=== PATIENT | female | born 1935 | race African-American/Black ===

== ENCOUNTER 2020-11-27 19:45 | Inpatient (IN) | payer OTHER ==
[~2020-11-27] VITALS: Ht 154.9 cm; Wt 72.8 kg
[~2020-11-27 19:45] MED LIST: AMLODIPINE BESY10 MG PO; ASPIRIN325; CARVEDILOL3.125 MG PO; HYDROCHLOROTHIA25 M1 PO; IRON325 PO; LISINOPRIL40 MG PO; VITAMINC500 PO; VITD2 PO
[2020-11-27 19:46] VITALS: BP 198/93
[2020-11-27 21:01] LABS: ABSOLUTE NEUTROPHILS 4.3 thou/uL (1.4-8.2); BASOPHILS 0.4 % (0.0-2.0); EOSINOPHILS 0.6 % (0.0-3.0); LYMPHOCYTES 12.2 % (24.0-44.0); MCH 28.7 pg (26.0-34.0); MCHC 31.3 g/dL (28.0-37.0); MCV 91.8 fL (80.0-100.0); MONOCYTES 8.4 % (1.0-8.0); PLATELET COUNT 169 thou/uL (150-400); POLYS 78.4 % (36.0-66.0); RBC 2.08 mil/uL (4.20-5.00); RDW 18.2 % (10.5-14.5); WBC 5.5 thou/uL (4.0-11.0)
[2020-11-27 21:05] LABS: HEMATOCRIT 19.1 % (37.0-47.0)
[2020-11-27 21:18] LABS: CALCIUM 7.8 mg/dL (8.5-10.1); CREATININE 8.4 mg/dL (0.6-1.0); POTASSIUM 5.2 mmol/L (3.5-5.1)
[2020-11-27 21:25] LABS: ALBUMIN 3.1 g/dL (3.4-5.0); TOTAL BILIRUBIN 0.5 mg/dL (0.2-1.0); TOTAL PROTEIN 6.9 g/dL (6.4-8.2)
[2020-11-27 21:32] LABS: INR 1.2; PROTIME 13.3 Seconds (9.3-11.4)
[2020-11-27 21:47] LABS: HEMOGLOBIN 5.9 gm/dL (12.0-15.0)
[2020-11-27 23:27] VITALS: BP 181/78
[2020-11-27 23:39] VITALS: BP 174/84
[2020-11-28] VITALS (7 sets, daily range): BP systolic 142–194; BP diastolic 66–108
--- NOTE | 2020-11-28 00:56 | NUR ---
0035 PT TRANSPORT TO ROOM 364 WITH BLOOD TRANSFUSION INFUSING. REPORT UPDATE GIVEN TO LEONA ASIF.
[2020-11-28] MEDS ORDERED: VITAMIN D310 MC1 PO (02:03)
[2020-11-28 05:39] LABS: HEMATOCRIT 22.3 % (37.0-47.0); HEMOGLOBIN 7.2 gm/dL (12.0-15.0); MCH 28.9 pg (26.0-34.0); MCHC 32.3 g/dL (28.0-37.0); MCV 89.5 fL (80.0-100.0); RBC 2.49 mil/uL (4.20-5.00); RDW 16.3 % (10.5-14.5); WBC 4.6 thou/uL (4.0-11.0)
[2020-11-28 05:45] LABS: % SATURATION 42 % (20-39); IRON 54 ug/dL (50-170); TIBC 130 ug/dL (250-450)
[2020-11-28 06:22] LABS: ANION GAP 18 mmol/L (7-16); BUN 63 mg/dL (7-18); CALCIUM 7.3 mg/dL (8.5-10.1); CHLORIDE 119 mmol/L (98-107); CHOLESTEROL 122 mg/dL (<200); CO2 13 mmol/L (21-32); GLUCOSE 81 mg/dL (74-106); HDL CHOLESTEROL 65 mg/dL (>40); LDL CHOLESTEROL 45 mg/dL (<100); POTASSIUM 4.9 mmol/L (3.5-5.1); SODIUM 150 mmol/L (136-145); TC:HDL 1.9 Ratio (Not establshd); TRIGLYCERIDE 63 mg/dL (<150); VLDL 13 mg/dL (<40)
[2020-11-28 06:25] LABS: SERUM ASSESSMENT Clear
--- NOTE | 2020-11-28 06:25 | NUR ---
Arrived from ER around 0100 with blood transfusion infusing. Completed trasfusion around 0330 and tolerated well. Unable to document on ED's blood transfusion.Daughter called to get an update on pt. Elevated BP reported to ACCOUNTING COORDINATOR and gave an order to give am dose of norvasc early. SR with PAC's per tele. Tolerating room air well with O2 sat in the upper 90's though she reported being short of breath with exertion. Kept NPO ,protonix gtt. infusing. Left sacral ulcer covered with foam dressing till seen by wound care team. Refused to wear SCD's. Lasix IV 40 mg one time dose given. Incontinent of bladder , external cath placed.
--- NOTE | 2020-11-28 07:28 | EKG ---
[place] [address] [facility] [place] [address] ELECTROCARDIOGRAM REPORT Name: SALEEM SAENZ Room #: 364-P ADM IN M.R.#: [id number] Admission: 11/27/20 Attend Phys: Rigo Lundy MD Discharge: Date of : 37 Report #: [id number] [facility] Test Date: 2020-11-27 Test Time: 20:00:35 Pat Name: SALEEM SAENZ Department: Room: 364 Gender: F Metaphysician: BENITA : 1935 Requested By: Kenneth Donaldson Order Number: [id number] MD: German Miranda Measurements Intervals [place] Rate: 71 P: 14 DC: 118 QRS: 8 QRSD: 155 T: 34 QT: 441 QTc: 480 Interpretive Statements Sinus rhythm Atrial premature complexes Borderline short DC interval Right bundle branch block Compared to ECG 09/18/2011 10:37:38 Atrial premature complex(es) now present Sinus bradycardia no longer present Electronically Signed On 11-28-2020 7:27:49 CDT by German Miranda [email or web address] <ELECTRONICALLY SIGNED> By: German Miranda MD, [facility] [phone] German Miranda MD, FAC /EPI
--- NOTE | 2020-11-28 07:28 | EKG ---
[place] [address] [facility] [place] [address] ELECTROCARDIOGRAM REPORT Name: SALEEM SAENZ Room #: 364-P ADM IN M.R.#: [id number] Admission: 11/27/20 Attend Phys: Rigo Lundy MD Discharge: Date of : 37 Report #: [id number] [facility] Test Date: 2020-11-27 Test Time: 22:48:16 Pat Name: SALEEM SAENZ Department: Room: 364 Gender: F Fitness Consultant: MPAGINNY : 1935 Requested By: Kenneth Donaldson Order Number: [id number] MD: German Miranda Measurements Intervals [place] Rate: 69 P: 59 IN: 157 QRS: 0 QRSD: 154 T: 31 QT: 443 QTc: 475 Interpretive Statements Sinus rhythm Atrial premature complexes Right bundle branch block Compared to ECG 11/27/2020 20:00:35 No significant changes Electronically Signed On 11-28-2020 7:27:53 CDT by German Miranda [email or web address] <ELECTRONICALLY SIGNED> By: German Miranda MD, [facility] 11/28/20 0727 2248 47 German Miranda MD, FAC /EPI
--- NOTE | 2020-11-28 09:40 | NUR ---
WOUND CONSULT; THE PATIENT HAS A WOUND TO THE LEFT BUTTOCKS APPROX. 3 X 3 X 0.1 AND A WOUND TO THE LEFT ISCHIAL APPROX. .3 X .3 X 0.1 AND A WOUND TO THE COCCYX .5 X .5 X 0.1 THE PERIWOUND MARGINS ARE MACERATED. LIKELY MACERATED FROM INCONTINENCE. THE PATIENT CURRENTLY IS USING A PUREWICK EXTERNAL FEMALE CATHETER WHICH SEEMS TO BE EFFECTIVE. RECOMMNDATIONS; 1-CONTINUE THE LOW AIR LOSS PUMP 2-TURN PATIENT Q2H 3-ASSESS THE PURWICK PLACEMENT Q2H 4-APPLY ZGUARD BID/PRN TO COCCYX, BUTTOCK ANS ISCHIUM DISCUSSED WITH YEFRI
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
--- NOTE | 2020-11-28 14:52 | NUR ---
Nutrition: Folate-6.0. Recommend order folate supplementation.
--- NOTE | 2020-11-28 18:27 | NUR ---
ASSUMED PATIENT CARE AT 0700. A/O X4. NO BLEEDING NOTED. WILL HAVE EGD IN AM. SLOWLY TOWARDS POC GOALS.
[2020-11-29 03:27] VITALS: BP 139/62
[2020-11-29 04:06] LABS: GLYCOHEMOGLOBIN (HGB A1C) 4.7 % (4.8-5.6)
[2020-11-29 06:01] LABS: HEMATOCRIT 22.2 % (37.0-47.0); HEMOGLOBIN 7.2 gm/dL (12.0-15.0); MCH 29.1 pg (26.0-34.0); MCHC 32.4 g/dL (28.0-37.0); MCV 89.6 fL (80.0-100.0); RBC 2.48 mil/uL (4.20-5.00); RDW 16.9 % (10.5-14.5); WBC 5.3 thou/uL (4.0-11.0)
[2020-11-29 06:18] LABS: CALCIUM 7.1 mg/dL (8.5-10.1); CREATININE 7.9 mg/dL (0.6-1.0); POTASSIUM 4.8 mmol/L (3.5-5.1)
--- NOTE | 2020-11-29 07:10 | NUR ---
Pt. slept intermittently during the night stating she's worried about the procedure today. Tylenol given for right shoulder pain with good relief. She has been repositioned. Incontinent of bowel and bladder . External cath in place. Z guard applied to buttocks. Tolerating room air well. Kept NPO for EGD today.
[2020-11-29 08:25] VITALS: BP 157/67
--- NOTE | 2020-11-29 10:20 | 2DMMODE ---
[facility] [address] [place] [address] 2 D/M-MODE ECHOCARDIOGRAM Name: SALEEM SAENZ [place] Room #: 364-P ADM IN M.R.#: [id number] Admission: 11/27/20 Attend Phys: Rigo Lundy MD Discharge: Date of : 37 Report #: [id number] THIS REPORT FOR: cc: E[place] - No family physician/PCP FAM - No family physician/PCP Griffin Woodruff MD ~ APPROVED REPORT Study performed: 11/29/2020 09:02:25 EXAM: Comprehensive 2D, Doppler, and color-flow Echocardiogram Patient Location: Bedside Room #: 364 BSA: 1.68 HR: 52 bpm BP: 139/62 mmHg Rhythm: Bradycardia Other Information Study Quality: Good Indications Congestive Heart Failure Hypertension/HDD 2D Dimensions RVDd: 33.49 mm IVSd: 11.04 (7-11mm) LVOT Diam: 21.49 (18-24mm) LVDd: 56.55 mm PWd: 11.43 (7-11mm) Ascending Ao: 29.25 (22-36mm) LVDs: 44.97 (25-40mm) Aortic Root: 28.11 mm IVC: 26.00 mm Volumes Left Atrial Volume (Systole) Single Plane 4CH: 115.36 mL Single Plane 2CH: 55.93 mL LA ESV Index: 52.00 mL/m2 Aortic Valve AoV Peak Yazan.: 2.25 m/s AO Peak Gr.: 20.25 mmHg LVOT Max P.97 mmHg LVOT Max V: 1.41 m/s APRIL Vmax: 2.28 cm2 [facility] [address] [place] [address] 2 D/M-MODE ECHOCARDIOGRAM Name: SALEEM SAENZ Room #: 364-P [facility]#: [id number] Admission: 11/27/20 Attend Phys: Rigo Lundy MD Discharge: Date of : 37 Report #: [id number] Mitral Valve E/A Ratio: 1.1 MV Decel. Time: 431.92 ms MV E Max Yazan.: 1.21 m/s MV A Yazan.: 1.08 m/s MV PHT: 125.26 ms IVRT: 87.66 ms Pulmonary Valve PV Peak Yazan.: 1.23 m/s PV Peak Gr.: 6.01 mmHg Pulmonary Vein P Vein S: 0.57 m/s P Vein A: 0.29 m/s P Vein A Dur.: 170.7 msec Tricuspid Valve TR Peak Yazan.: 3.73 m/s TR Peak Gr.: 55.74 mmHg PA Pressure: 66.00 mmHg Left Ventricle The left ventricle is normal size. There is mild hypokinesis in the inferior wall. There is mild hypokinesis in the posterior wall. There is normal left ventricular wall thickness. Left ventricular systolic function is borderline. LVEF is 50%. The left ventricular diastolic function is abnormal. Right Ventricle The right ventricle is normal size with increased trabeculations noted The right ventricular systolic function is normal. Atria Left atrium is dilated. Right atrium is dilated. Aortic Valve The aortic valve is normal in structure. The Aortic valve is sclerotic. Trace aortic regurgitation. There is no aortic valvular stenosis. Mitral Valve The mitral valve is normal in structure. Moderate mitral regurgitation. No evidence of mitral valve stenosis. Tricuspid Valve The tricuspid valve is normal in structure. There is moderate [facility] [address] [place] [address] 2 D/M-MODE ECHOCARDIOGRAM Name: SALEEM SAENZ Room #: 364-P ADM IN .R.#: [id number] Admission: 11/27/20 Attend Phys: Rigo Lundy MD Discharge: Date of : 37 Report #: [id number] tricuspid regurgitation. Estimated PAP 66 mmHg. There is moderate pulmonary hypertension. Pulmonic Valve The pulmonary valve is normal in structure. There is no pulmonic valvular regurgitation. Great Vessels The aortic root is normal in size. IVC is dilated and collapses <50% with inspiration. Pericardium There is no pericardial effusion. Moderate pleural effusion. <Conclusion> The left ventricle is normal size. LVEF is 50%. There is mild hypokinesis in the inferior wall. There is mild hypokinesis in the posterior wall. The right ventricle is normal size with increased trabeculations noted The right ventricular systolic function is normal. Left atrium is dilated. Right atrium is dilated. The aortic valve is normal in structure. The Aortic valve is sclerotic. Trace aortic regurgitation. The mitral valve is normal in structure. Moderate mitral regurgitation. The tricuspid valve is normal in structure. There is moderate tricuspid regurgitation. Estimated PAP 66 mmHg. There is moderate pulmonary hypertension. The pulmonary valve is normal in structure. There is no pericardial effusion. Moderate pleural effusion. <ELECTRONICALLY SIGNED> By: Griffin Woodruff MD 11/29/20 1020 1020 1020 Griffin Woodruff MD /INF
[2020-11-29 11:21] VITALS: BP 166/68
[2020-11-29 11:36] LABS: PROT/CREAT RATIO 3.1; URINE CREATININE-RANDOM* 72.1 mg/dL; URINE PROTEIN-RANDOM* 226.6 mg/dL (<11.9)
[2020-11-29 15:58] VITALS: BP 145/93
--- NOTE | 2020-11-29 16:26 | EKG ---
[place] [address] [facility] [place] [address] ELECTROCARDIOGRAM REPORT Name: SALEEM SAENZ Room #: 364-P ADM IN M.R.#: [id number] Admission: 11/27/20 Attend Phys: Rigo Lundy MD Discharge: Date of : 37 Report #: [id number] [facility] Test Date: 2020-11-29 Test Time: 09:48:09 Pat Name: SALEEM SAENZ Department: Room: 364 Gender: F Wood Bucker: FSCHWALBE : 1935 Requested By: Rigo Lundy Order Number: [id number] MD: Terry Rutherford Measurements Intervals [place] Rate: 48 P: 0 DC: 105 QRS: -11 QRSD: 160 T: -2 QT: 509 QTc: 455 Interpretive Statements Sinus bradycardia Atrial premature complex Right bundle branch block Compared to ECG 11/27/2020 22:48:16 Heart rate has slowed Electronically Signed On 11-29-2020 16:25:52 CDT by Terry Rutherford [email or web address] <ELECTRONICALLY SIGNED> By: Terry Rutherford MD, [facility] 11/29/20 1625 7 7 Terry Rutherford MD, [facility] /EPI
[2020-11-29 19:50] VITALS: BP 139/103
[2020-11-30 04:43] VITALS: BP 151/59
[2020-11-30 05:49] LABS: CALCIUM 7.1 mg/dL (8.5-10.1); CREATININE 7.8 mg/dL (0.6-1.0)
[2020-11-30 05:59] LABS: HEMATOCRIT 23.5 % (37.0-47.0); HEMOGLOBIN 7.4 gm/dL (12.0-15.0); MCH 29.2 pg (26.0-34.0); MCHC 31.6 g/dL (28.0-37.0); MCV 92.3 fL (80.0-100.0); RBC 2.54 mil/uL (4.20-5.00); WBC 4.5 thou/uL (4.0-11.0)
[2020-11-30 08:06] VITALS: BP 147/59
--- NOTE | 2020-11-30 09:22 | NUR ---
PT SLEPT ALL SHIFT REPOSITIONED Q2 HOURS DENIES PAIN OR ANY OTHER NEEDS CONTINUE TO MONITOR.
[2020-11-30 10:11] LABS: URINE BILIRUBIN NEGATIVE (Negative); URINE BLOOD 3+ (Negative); URINE CLARITY CLOUDY; URINE COLOR YELLOW; URINE GLUCOSE-RANDOM* NEGATIVE (Negative); URINE KETONES NEGATIVE (Negative); URINE NITRITE-REFLEX NEGATIVE (Negative); URINE PROTEIN (DIPSTICK) 2+ (Negative); URINE SPECIFIC GRAVITY 1.025 (1.005-1.035); URINE UROBILINOGEN 0.2 E.U./dl (0.2-1.0)
[2020-11-30 10:13] LABS: URINE LEUKOCYTES-REFLEX 3+ (Negative)
[2020-11-30 10:28] LABS: BACTERIA-REFLEX >30 Many /HPF (None Seen); CASTS None Seen /LPF (None Seen); CRYSTALS None Seen /LPF (None Seen)
[2020-11-30 10:29] LABS: SQUAMOUS 0-3 Few /LPF (0-3); URINE WBC-REFLEX >25 Many /HPF (0-5)
[2020-11-30 10:30] LABS: URINE RBC 0-2 Rare /HPF (0-2)
--- NOTE | 2020-11-30 13:15 | NUR ---
WOUND CARE F/U; THE COCCYX, BUTTOCKS AND ISCHIUM SHOW CLINICAL IMPROVEMENT. NO S/S OF INFECTION. THE PATIENTS OVERALL CONDITION IS IMPROVING. THE PATIENT IS LIKELY TO ADVANCE TO THE REHAB UNIT. RECOMMENDATIONS; CONTINUE THE CURRENT TREATMENT. DISCUSSED WITH YEFRI
--- NOTE | 2020-11-30 14:34 | NUR ---
SW reviewed chart and spoke with nursing and attending physician. Pt is scheduled to have an EGD tomorrow. Renal following. Pt may need dialysis in the future. OT eval and [facility] consult ordered today. SW met with pt at bedside to discuss discharge plan. Pt is agreeable with going to [facility] if accepted. SW explained need for insurance authorization. Pt verbalized understanding. SW is following to assist as needed with discharge planning.
[2020-11-30 15:42] VITALS: BP 146/66
--- NOTE | 2020-11-30 15:42 | NUR ---
DISCUSSED WITH NURSE AT LENGTH ABOUT GOAL TO GET PT TO W/C BUT WILL POSSIBLY NEED NICHOLAS LIFT FOR RETURN DUE TO CONCERNS WITH BED HEIGHT AND POSSIBLE FATIGUE. DISCUSSED WITH PT ABOUT GOALS, NICHOLAS, CONCERNS. PT WILL LIKELY NEED A 22" W/C FOR HIP WIDTH. PT NEEDS TO BE MD WITH TRANSFERS FOR RETURN HOME. DISCUSSED WITH PT NEED FOR OUT OF BED ACTIVITY FOR STRENGTHENING AND PREVENTING FURTHER WEAKNESS. PT ACKNOWLEDGES AND AGREES FOR NEXT VISIT.
--- NOTE | 2020-11-30 18:31 | NUR ---
ASSUMED PATIENT CARE AT 0700. A/O X4. ONLT 150 UNIRE OUTPUT ON THIS SHIFT. NO DISTRESS NOTED. NPO AFTER MIDNIGHT TO EGD IN AM. KEEP MONITOR,
[2020-11-30 21:10] VITALS: BP 138/55
[2020-12-01 04:35] LABS: ALBUMIN 2.1 g/dL (3.4-5.0); CREATININE 7.8 mg/dL (0.6-1.0); PHOSPHORUS 5.5 mg/dL (2.5-4.9); POTASSIUM 4.7 mmol/L (3.5-5.1)
[2020-12-01 04:55] VITALS: BP 138/61
[2020-12-01 06:45] LABS: HEMATOCRIT 22.4 % (37.0-47.0); HEMOGLOBIN 7.1 gm/dL (12.0-15.0); MCH 28.8 pg (26.0-34.0); MCHC 31.8 g/dL (28.0-37.0); MCV 90.7 fL (80.0-100.0); RBC 2.47 mil/uL (4.20-5.00); RDW 17.2 % (10.5-14.5); WBC 5.2 thou/uL (4.0-11.0)
[2020-12-01 07:18] VITALS: BP 156/58
--- NOTE | 2020-12-01 08:18 | NUR ---
progress pt a/o x4 stewart intact iv sl flushed without difficulty. 2 large loose stools last night , npo at mn pending egd today. pt denies pain vss continue poc.
--- NOTE | 2020-12-01 09:30 | NUR ---
Nutrition: Based on renal labs, rec advance diet to Renal post EGD. Also pt needs vitamin D and folate supplementation for deficiency.
[2020-12-01 11:44] VITALS: BP 173/63
[2020-12-01 12:04] LABS: CALCIUM 6.8 mg/dL (8.5-10.1); CREATININE 7.9 mg/dL (0.6-1.0); PHOSPHORUS 5.8 mg/dL (2.6-4.7)
[2020-12-01 15:57] VITALS: BP 151/69
--- NOTE | 2020-12-01 15:59 | NUR ---
MARKELL reviewed chart and spoke with nursing and attending physician. Pt is progressing towards goals for discharge. [facility] is not able to accept pt as she is at her baseline. MARKELL met with pt at bedside. Discussed SNF referral v. home with HH. Pt states she would prefer to go home with HH. Pt's dtr is in the process of having pt moved in with her. MARKELL confirmed pt's home address and phone number. Options provided for HH. No preference voiced. MARKELL faxed referral to [facility] and spoke with [facility] liaison of new referral. Finalized discharge orders/summary will need to be faxed to HH when available. Pt states her daughter will be able to provide transportation home over the weekend. MARKLEL is following to assist as needed with discharge planning.
--- NOTE | 2020-12-01 18:45 | NUR ---
PATIENT HAD EGD TODAYTOLERATED WELL. SOB WITH EXERTION. 2L O2 OFFERED. LOW URINE OUTPUT. NOT TOWARDS POC GOALS.
[2020-12-01 20:06] LABS: IgA 199 mg/dL (64-422); IgG 1174 mg/dL (586-1602); IgM 49 mg/dL (26-217)
[2020-12-01 20:25] VITALS: BP 147/67
[2020-12-02 03:28] LABS: HEMOGLOBIN 6.9 gm/dL (12.0-15.0); MCH 28.8 pg (26.0-34.0); RBC 2.38 mil/uL (4.20-5.00)
[2020-12-02 03:30] LABS: HEMATOCRIT 21.4 % (37.0-47.0); MCV 90.2 fL (80.0-100.0); RDW 16.8 % (10.5-14.5); WBC 4.4 thou/uL (4.0-11.0)
[2020-12-02 03:34] LABS: ALBUMIN 2.1 g/dL (3.4-5.0); CALCIUM 6.6 mg/dL (8.5-10.1); PHOSPHORUS 5.8 mg/dL (2.5-4.9); POTASSIUM 4.7 mmol/L (3.5-5.1)
[2020-12-02 04:56] VITALS: BP 146/73
[2020-12-02 06:06] LABS: HEP B SURFACE Ab(ANTI-HBS Non Reactive (()); HEPATITIS B SURFACE AG Negative (Negative)
[2020-12-02 07:17] VITALS: BP 154/61
[2020-12-02 09:07] LABS: KAPPA FREE LIGHT CHAINS 199.2 mg/L (3.3-19.4); KAPPA/LAMBDA RATIO 1.69 (0.26-1.65); LAMBDA FREE LIGHT CHAINS 118.2 mg/L (5.7-26.3)
--- NOTE | 2020-12-02 09:23 | NUR ---
PT MAKING PROGRESS TOWARD GOAL. NO OBSERVABLE BLEEDING NOTED OVERNIGHT.
[2020-12-02 12:15] VITALS: BP 160/65
[2020-12-02 15:00] VITALS: BP 156/67
[2020-12-02 15:06] VITALS: BP 150/70; BP 153/67
--- NOTE | 2020-12-02 19:51 | NUR ---
RN ASSUMED PT'S CARE AT 0700AM, PT IS A&OX3, PT IS ON O2 2L/MIN/NC, PT 'S VS ARE STABLE AT DAY SHIFT, PT IS CONTINUING IV ABX, PT HAS FINISHED 1 UNIT BLOOD TRANSFUSON AT 1700PM, PT WAS TOLERATIVED,NO REACTION BY THIS TIME.
[2020-12-02 20:17] VITALS: BP 159/62
[2020-12-03] VITALS (7 sets, daily range): BP systolic 147–175; BP diastolic 52–89
--- NOTE | 2020-12-03 04:33 | NUR ---
Pt. slept well during the night . Repositioned for comfort. Maintaining O2 sat in the mid 90's on 2L/NC. Tylenol given for shoulder pain with some relief. Incontinent of bm. Z guard applied to her buttocks. No active bleeding. Making some progress towards care plan goals.
[2020-12-03 08:19] LABS: ALBUMIN 2.2 g/dL (3.4-5.0); CALCIUM 6.6 mg/dL (8.5-10.1); CREATININE 7.9 mg/dL (0.6-1.0); POTASSIUM 4.6 mmol/L (3.5-5.1)
--- NOTE | 2020-12-03 16:35 | NUR ---
RN ASSUMED PT'S CARE AT 0700AM, PT IS A&0X3 , PT CAN FOLLOW ALL COMMANDS, PT IS ON O2 2L/MIN/NC, PT'S VS ARE STABLE, PT DENIES PAIN AND SOB BY THIS TIME, BUT PT STILL HAS WEAKNESS, AND SHE NEEDS HELP ADL. PT HAD 1 UNIT BLOOD TRANSFUSION YESTODAY, PT FELL BETTER TODAY.
[2020-12-03 18:07] LABS: HEMATOCRIT 30.3 % (37.0-47.0)
[2020-12-03 18:12] LABS: HEMOGLOBIN 9.7 gm/dL (12.0-15.0)
--- NOTE | 2020-12-03 22:17 | NUR ---
PT RESTING QUIETLY. SHE REFUSED TO BE TURNED FOR NOWDUE TO SHE STATED SHE IS WARM AND COMFORTABLE FOR NOW. READJUSTED UPPER BODY. PT ON TEA MATTRESS. NO GI BLEEDING NOTED PRESENTLY. VSS AFEBRILE. UNLABORED ON 2LNC. NO S/S DISTRESS.
[2020-12-04 05:03] VITALS: BP 151/62
[2020-12-04 06:05] LABS: ALBUMIN 2.1 g/dL (3.4-5.0); CALCIUM 6.6 mg/dL (8.5-10.1); CREATININE 7.5 mg/dL (0.6-1.0)
--- NOTE | 2020-12-04 06:20 | NUR ---
PT C/O PAIN TO RIGHT SHOULDER. 2+ EDEMA NOTED. TYLENOL GIVEN FOR PAIN. NO OTHER S/S DISTRESS.
[2020-12-04 07:52] VITALS: BP 180/54
[2020-12-04 11:04] VITALS: BP 176/55
--- NOTE | 2020-12-04 11:42 | NUR ---
WOUND CARE F/U; DISCOVERED A SKIN TEAR TO THE LEFT FORARM WITH SOME ERYTHEMA TO THE PERIWOUND. THE WOUNDS TO THE COCCYX,SACRUM AND ISCHIUM ARE STABLE AT THIS TIME WITH NO S/S OR INFECTION AT THIS TIME. RECCOMENDATIONS; 1-XEROFORM GAUZE,COVER WITH A BORDER FOAM CHANGE M/W/F PRN NO OTHER CHANGES DISCUSSED WITH RN.
--- NOTE | 2020-12-04 11:52 | NUR ---
MARKELL reviewed chart and spoke with nursing and attending physician. Pt is progressing towards goals for discharge. Recommendation made for pt to go to post-acute care. Pt is on IV abx and 2L of O2. Pt may need to start dialysis in the future. MARKELL met with pt at bedside to discuss SNF placement. Provided pt with list on in-network SNF facilities for review. Pt states she has been to [facility] in the past, and is agreeable with referral to the facility. MARKELL faxed referral to [facility] and notified Dayami in admissions. MARKELL also faxed info to [facility] for review. Will need insurance auth for skilled placement. MARKELL is following to assist as needed with discharge planning.
[2020-12-04 13:07] LABS: GLOBULIN TOTAL 2.7 g/dL (2.2-3.9); M-SPIKE Not Observed g/dL (Not Observed)
[2020-12-04 15:33] VITALS: BP 128/56
--- NOTE | 2020-12-04 19:06 | PATH ---
[facility] [address] [place] [address] PATHOLOGY RPT PROCEDURE Name: DANYJENNIFER MCGILL [place] Room #: 364-P ADM IN M.R.#: [id number] Admission: 11/27/20 Date of : 39 Discharge: Report #: [id number] Path Case #: [id number] [facility] Accession Number: [id number] . 01 Material submitted: . duodenum - BIOPSY DUODENAL RULE OUT SPRUE . 01 Clinical history: . EGD PRE-OP DIAGNOSIS: ANEMIA POST-OP DIAGNOSIS: IRON DEFICIENCY ANEMIA RULE OUT SPRUE . 02 Diagnosis: Small bowel mucosa, duodenum R/O sprue, endoscopic biopsy: - No significant diagnostic abnormalities present. - Negative for villous blunting or increase in intraepithelial lymphocytes. ([facility]; 12/04/2020) QMS 12/04/2020 1246 Local . 02 Electronically signed: . Augustina Beach MD, Pathologist NPI- [id number] . 01 Gross description: . Received in formalin labeled "Jennifer German, biopsy duodenal rule out sprue" are multiple kingston-brown soft tissue fragments measuring in aggregate 1.6 x 0.4 x 0.3 cm. The specimen is submitted entirely in A1. ([facility]; 12/03/2020) GZA/GZA 12/03/2020 1022 Local . 02 Pathologist provided ICD-10: D64.9 . 02 CPT . 521226 Specimen Comment: A courtesy copy of this report has been sent to [phone] Specimen Comment: [id number] Specimen Comment: Report sent to / DR BARRETT Performed at: [address] [id number] MD Darryl Arenas MD Phone: [phone] Performed at: 02 [facility] [address] [place] [address] PATHOLOGY RPT PROCEDURE Name: DANYJENNIFER Montero Room #: 364-P ADM IN M.R.#: [id number] Admission: 11/27/20 Date of : 37 Discharge: Report #: [id number] Path Case #: [id number] [address] [place] [address] [id number] MD Augustina Beach MD Phone: [phone]
--- NOTE | 2020-12-04 19:14 | NUR ---
RN ASSUMED PT'S CARE AT 0700AM, PT IS A&OX3, PT IS CONTINUING IV ABX , PT'S VS ARE STABLE, PT IS ON O2 2L/MIN/NC, PT DENIES PAIN AND SOB BY THIS TIME.
[2020-12-04 19:48] VITALS: BP 167/51
[2020-12-04 23:57] VITALS: BP 163/93
[2020-12-05] VITALS (12 sets, daily range): BP systolic 114–172; BP diastolic 38–78
[2020-12-05 06:58] LABS: ALBUMIN 2.3 g/dL (3.4-5.0); CALCIUM 7.2 mg/dL (8.5-10.1); CREATININE 7.7 mg/dL (0.6-1.0); PHOSPHORUS 5.3 mg/dL (2.6-4.7); POTASSIUM 4.4 mmol/L (3.5-5.1)
--- NOTE | 2020-12-05 07:38 | NUR ---
PT PROGRESSING POORLY TOWARDS D/C GOALS. HR INCREASED TO 150s BRIEFLY THEN DOWN TO 110. SHE WAS SB-SR WITH BBB ALL NIGHT UNTIL AROUND 05:05 THIS AM. NOTIFED LCSW SERGIO. EKG DONE. AFIB WITH R BBB. CARDIOLGY NOTIFIED. AMIODARONE 400MG PO GIVEN. HR DOWN TO 60-70S PRESENTLY. PT STATED SHE WOULD LIKE TO GET DIALYSIS CATHETER INSERTED TODAY AND START DIALYSIS. ZGARD APPLIED TO WOUNDS ON BUTTOCKS. LEFT ARM DRESSING REMAINS INTACT.
--- NOTE | 2020-12-05 11:35 | NUR ---
PT NPO SINCE AM, FOR DIALYSIS CATH TODAY. WAIING FOR IR TO CALL FOR WHENM PT CAN GO FOPR SURGERY
--- NOTE | 2020-12-05 12:07 | EKG ---
[address] [place] [address] ELECTROCARDIOGRAM REPORT Name: SALEEM SAENZ Room #: 364-P ADM IN M.R.#: [id number] Admission: 11/27/20 Attend Phys: Rigo Lundy MD Discharge: Date of : 37 Report #: [id number] [facility] Test Date: 2020-12-05 Test Time: 06:02:15 Pat Name: SALEEM SAENZ Department: Room: 364 Gender: F Toy Mechanic: 364 : 1935 Requested By: Jamie Wade Order Number: [id number] MD: German Miranda Measurements Intervals [place] Rate: 109 P: KS: QRS: -33 QRSD: 141 T: 39 QT: 376 QTc: 507 Interpretive Statements Atrial fibrillation Right bundle branch block Compared to ECG 11/29/2020 09:48:09 Sinus bradycardia no longer present Atrial premature complex(es) no longer present Electronically Signed On 12-05-2020 12:07:28 CDT by German Miranda [email or web address] <ELECTRONICALLY SIGNED> By: German Miranda MD, [facility] 12/05/20 1207 06 1 German Miranda MD, [facility] /EPI
--- NOTE | 2020-12-05 14:49 | NUR ---
MARKELL reviewed chart and spoke with nursing and attending physician. Pt to have dialysis catheter placed today and will have first dialysis tomorrow. MARKELL provided updated to Dayami in admissions at [facility] who can accept pt pending insurance authorization. MARKELL met with pt's dtr, Jamila at bedside. Pt in IR for catheter placement. Discussed plan and provided update. Pt's dtr is aware and agreeable with discharge plan. MARKELL faxed clinical/therapy updates to [facility] and [facility] for review. MARKELL is following to assist as needed with discharge planning.
--- NOTE | 2020-12-05 15:52 | NUR ---
1530 PT BACK FROM IR, DIALYSIS CATH INSERTED TO THE RIGHT CHEST, DRESSING CLEAN, DRY AND INTACT. PT ASLEEP BUT EASILY AROUSABLE AND DIRECTED BUT FALLS RIGHT BACK TO SLEEP. OXYGEN INCREASED TO 4L, PT SATS AROUND 96% AND GREATER. SUCTIONS SET UP DUE TO DROOLING. VITALS TAKEN EVERY 15MINS. WILL CONTINUE TO MONITOR
[2020-12-05 21:31] LABS: HEMATOCRIT 31.8 % (37.0-47.0); HEMOGLOBIN 9.7 gm/dL (12.0-15.0); MCH 28.3 pg (26.0-34.0); MCHC 30.6 g/dL (28.0-37.0); MCV 92.7 fL (80.0-100.0); RBC 3.43 mil/uL (4.20-5.00); RDW 18.1 % (10.5-14.5)
[2020-12-05 21:37] LABS: CALCIUM 7.6 mg/dL (8.5-10.1); CREATININE 7.7 mg/dL (0.6-1.0); POTASSIUM 4.9 mmol/L (3.5-5.1)
[2020-12-05 21:47] LABS: BE(vivo) -10.1 mmol/L (-2 to +3); HCO3 19.7 mmol/L (22.0-26.0); PCO2 64.9 mmHg (35.0-45.0); PO2 94.2 mmHg (80.0-100.0)
--- NOTE | 2020-12-06 00:18 | NUR ---
ASSUME CARE FOR PT AT 1845. DURING ASSESSMENT PT WAS WANTING TO KEEP MOVING BODY TO LYING ON THE LEFT SIDE. REPOSITIONED AND ADJUSTED NASAL CANNULA. CAME BACK TO ROUND AND REPOSITIONED AND ADJUSTED NASAL CANNULA AGAIN. PT SLEEPING AND HARD TO AROUSE. PT IS ON 02 MONITOR AND WATCHING FOR DROPPING 02 SATURATION.
--- NOTE | 2020-12-06 00:21 | NUR ---
[facility] CALLED FOR PT AT 2114. PT LYING ON LEFT SIDE WITH WHITE SPUTUM DRIPPING OUT OF MOUTH. PT VERY HARD TO AROUSE. ABG'S, LABS, BLOOD SUGAR, VITALS, AND CHEST XRAY TAKEN. CALLED RENAL TO ADDRESS ABOUT PT METABOLIC STATE AND SAID NOT TO GIVE BICARB, PLACE PT ON BIPAP. XRAY RESULTED AND SPOKE WITH TOP LIFT AND AUTOMATIC WINDOW REPAIRER AND PLASMA CUTTING MACHINE OPERATOR AND CONSULT CALLED IN TO PULMONARY.
[2020-12-06 04:14] LABS: BE(vivo) -9.3 mmol/L (-2 to +3); HCO3 19.5 mmol/L (22.0-26.0); PCO2 57.6 mmHg (35.0-45.0); PO2 78.6 mmHg (80.0-100.0); pH 7.148 (7.360-7.450); sO2 91.5 % (92.0-98.0)
[2020-12-06 07:17] VITALS: BP 124/40
--- NOTE | 2020-12-06 09:09 | P ---
[facility] [place] [address] PROCEDURE REPORT Name: SALEEM SAENZ Room #: 364-P ADM IN M.R.#: [id number] Admission: 11/27/20 Attend Phys: Rigo Lundy MD Discharge: Date of : 39 Report #: [id number] THIS REPORT FOR: cc: FAM - No family physician/PCP FAM - No family physician/PCP George Crocker MD ~ DATE OF SERVICE: 12/01/2020 PROCEDURE PERFORMED: Upper endoscopy with biopsies. HISTORY OF PRESENT ILLNESS: The patient is an 84-year-old female who was admitted with extremity edema, was noted on admission to have hemoglobin of 6, was transfused to 7.2 after 1 unit. She has been having dark stools, but also has been taking oral iron supplements as well. No previous history of endoscopy including colonoscopy over the years. She denies any nausea, vomiting or abdominal pain. Stool is Hemoccult negative x 1 on 11/27/2020 here. Most recent hemoglobin was 7.1 today. She does have renal insufficiency, was admitted with a creatinine 8.4, this is improved slightly to 7.8 at this time. Plan is for EGD. DESCRIPTION OF PROCEDURE: The risks and benefits of the procedure were explained to the patient, those risks including but not limited to bleeding, perforation and the risk of sedation. She understood these risks and gave informed consent. Sedation was given using propofol per anesthesia. Next, using a standard Olympus upper endoscope, the scope was placed in the patient's mouth and advanced under direct vision through the esophagus, stomach and into the second portion of the duodenum. The larynx was normal in appearance. The esophagus was normal throughout. The GE junction was normal. Overall, the gastric mucosa was normal. The pylorus was normal and patent. The duodenal bulb, first and second portion were all normal. No evidence of blood throughout the exam today. Random biopsies of the duodenum were obtained to rule out the possibility of celiac sprue. The scope was then withdrawn and the procedure terminated. The patient tolerated the procedure well. IMPRESSION: Normal upper endoscopy. RECOMMENDATIONS: 1. Await biopsy results. 2. Continue to monitor hemoglobin. 3. Etiology of anemia may be secondary to renal failure. 4. At some point, the patient needs a colonoscopy as she has never had one in the past. [address] [address] PROCEDURE REPORT Name: DANYHILTONSALEEM Kylah Room #: 364-P [facility] IN M.R.#: [id number] Admission: 11/27/20 Attend Phys: Rigo Lundy MD Discharge: Date of : 39 Report #: [id number] Thank you for allowing me to participate in her care. <ELECTRONICALLY SIGNED> By: George Crocker MD 12/06/20 0909 0924 1116 George Crocker MD /nt
[2020-12-06 11:35] VITALS: BP 122/32
--- NOTE | 2020-12-06 12:27 | NUR ---
CARE ASSUMED AT 0700, PT ASSESSED AND REPOSITIONED. DAUGHTER CALLED AND UPDATED ABOUT LAST NIGHT EVENTS. STATED SHE WILL BE HERE IN THIS AM TO SEE HER MOM. BIPAP CONTIUES TO BE IN PLACE. PT ALERT AND ORIENTED X4, CALM AND ABLE TO FOLLOW COMMANDS. RESTRAINT D/C AND CHARTED IN FLOWSHEET. CALLED DIALYSIS NURSSE AND WAS TOLD PT WILL BE GETTING DIALYSIS AROUND 1330 TODAY. REPOITIONED EVERY 2HOURS. WILL CONTINUE TO MONITOR
--- NOTE | 2020-12-06 13:45 | NUR ---
WOUND CARE F/U; THE WOUNDS ARE STABLE TODAY. NO S/S OF INFECTION. THE PATIENT IS LEAVING TO HAVE A TEST. NO CHANGES ARE NECCESSARY TODAY. CONTINUE CURRENT TRTEATMENT.
--- NOTE | 2020-12-06 15:04 | NUR ---
MARKELL reviewed chart and spoke with nursing and attending physician. Pt had dialysis catheter placed yesterday and having first dialysis treatment today. Pt placed on bipap earlier today. MARKELL provided update to Arya in admissions at [facility]. Plan is for pt to discharge to [facility] when medically stable. MARKELL is following to assist as needed with discharge planning.
[2020-12-06 15:37] VITALS: BP 133/45
--- NOTE | 2020-12-06 16:23 | NUR ---
1330 dialysis nurse in there about start. 1400 pt HR in 38's, dr. brady page and made aware, gave orders to d/c jasmyn hernandes
[2020-12-06 19:54] VITALS: BP 132/39
[2020-12-07 03:53] VITALS: BP 125/44
--- NOTE | 2020-12-07 07:33 | NUR ---
PT'S MENTATION FROM PREVIOUS SHIFT IS 100% IMPROVED. PT IS TALKING AND ASKING FOR FOOD AND DRINK. VSS, WITH BP SYSTOLIC LOW. PO HYDRALAZINE HELD. PT STATED SHE DID NOT WANT TO GO BACK ON BIPAP. CURRENTLY ON 4L AND ON CONTINUOS PULSE OX SHOWING 97%. Q2 TURNS.
[2020-12-07 07:47] VITALS: BP 144/43
[2020-12-07 09:28] LABS: HEMATOCRIT 23.8 % (37.0-47.0); MCH 28.8 pg (26.0-34.0); MCHC 31.9 g/dL (28.0-37.0); MCV 90.2 fL (80.0-100.0); RBC 2.64 mil/uL (4.20-5.00); WBC 5.7 thou/uL (4.0-11.0)
[2020-12-07 09:44] LABS: CALCIUM 7.2 mg/dL (8.5-10.1); HEMOGLOBIN 7.6 gm/dL (12.0-15.0); MAGNESIUM 1.4 mg/dL (1.8-2.4); POTASSIUM 4.5 mmol/L (3.5-5.1)
[2020-12-07 09:45] LABS: CREATININE 5.2 mg/dL (0.6-1.0)
--- NOTE | 2020-12-07 15:20 | NUR ---
MARKELL reviewed chart and spoke with nursing and attending physician. Pt to have second dialysis today. Pt is requiring 4L of O2. Pulmonary consult ordered. Discharge to [facility] is anticipated for Friday, 12/09. MARKELL faxed updated clinical and therapy notes to [facility] for review. MARKELL updated Dayami in admissions at [facility], who will check on status of insurance authorization. MARKELL is following to assist as needed with discharge planning.
[2020-12-07 19:20] VITALS: BP 142/50
[2020-12-08 01:03] VITALS: BP 117/32
--- NOTE | 2020-12-08 02:26 | NUR ---
PT AWAKENED AND ASKED FOR JELLO AND PROVIDED.
[2020-12-08 03:15] VITALS: BP 148/45
[2020-12-08 06:24] LABS: HEMATOCRIT 24.8 % (37.0-47.0); HEMOGLOBIN 7.9 gm/dL (12.0-15.0); MCH 28.6 pg (26.0-34.0); MCHC 31.9 g/dL (28.0-37.0); MCV 89.7 fL (80.0-100.0); RBC 2.76 mil/uL (4.20-5.00); RDW 17.7 % (10.5-14.5); WBC 4.5 thou/uL (4.0-11.0)
[2020-12-08 06:29] LABS: MAGNESIUM 1.4 mg/dL (1.8-2.4); POTASSIUM 3.9 mmol/L (3.5-5.1)
[2020-12-08 06:38] LABS: CREATININE 3.5 mg/dL (0.6-1.0)
[2020-12-08 07:50] VITALS: BP 148/58
[2020-12-08 14:42] VITALS: BP 126/55
--- NOTE | 2020-12-08 15:18 | NUR ---
MARKELL reviewed chart and spoke with nursing and attending physician. Pt is having third consecutive dialysis today. Pt is progressing towards goals for discharge. Discharge to [facility] is anticipated for tomorrow. MARKELL faxed clinical/therapy updates to [facility] for review. Updated Dayami in admissions. MARKELL faxed additional clinical info for pt's dialysis time to be arranged. Hep B total core lab ordered today. Awaiting insurance authorization, as pt's previous auth has . MARKELL met with pt at bedside to provide update and discuss discharge plan. Pt is aware and in agreement with discharge plan. Staff to contact Arya at [facility] to coordinate discharge over the weekend. Finalized discharge orders/summary will need to be faxed when available. Nursing to call report. Chart will need to be copied. MARKELL is following to assist as needed with discharge planning. [facility]-- Arya (admissions liaison) [phone]
--- NOTE | 2020-12-08 16:14 | NUR ---
assumed care of pt at 0700. pt alert and oriented in no acute distress. breathing comfortably on nasal cannula. dialyzed for 2 liters. complains of pain to left calf - tender to touch. hospitalist notified - venous US BLE ordered. results pending. increased HR this afternoon. cardiology notified. one time dose lopressor given per cardiology. zguard applied to backside. turned q2h and prn. wcm.
[2020-12-08 20:00] VITALS: BP 110/52
[2020-12-09] VITALS (7 sets, daily range): BP systolic 110–151; BP diastolic 52–69
--- NOTE | 2020-12-09 05:57 | NUR ---
PT MAKING SLOW PROGRESS TOWARDS GOALS. ON O2 AT 2L PER NC, REPORTEDLY 4L DURING DAY TIME. PT DENIES ANY SOA AT REST. NOTED CRACKLES THROUGHOUT LUNG GARAY FOR DAY TIME, NONE APPRECIATED OVERNIGHT. PT REPORTING PAIN IN HER BACK IS AT GOAL LEVEL THROUGHOUT THE NIGHT.
--- NOTE | 2020-12-09 12:26 | NUR ---
care assumed at 0700, pt alert and oriented x4, pt denies any pain, nausea and vomitting. assessment completed per order. pt repositioned every 2 hours as needed. fall precautions in place. will continue to monitor.
[2020-12-10] VITALS (7 sets, daily range): BP systolic 127–150; BP diastolic 45–57
--- NOTE | 2020-12-10 19:40 | NUR ---
RN ASSUMED PT'S CARE AT 0700AM, PT IS A&OX3, PT IS ON O2 2L/MIN/NC TO KEEP O2SAT >92%, RN HAS REPORTED TO DR ABOUT PT'S LOW HR AT MOST OF TIME, NEW ORDER RECEIVED, PT IS NPO AFTER MN FOR HAVING NEW PACE MAKER TOMORROW , RN HAS NOTIFIED PT AND PT'S DAUGHTER, BUT PT'S DAUGHTER WANTS TO TALK TO DR ABOUT THIS PROCEDURE, RN HAS CALLED DR. PT DENIES PAIN AND SOB AT DAY SHIFT.
[2020-12-11 03:35] VITALS: BP 151/58
--- NOTE | 2020-12-11 04:05 | NUR ---
aware of the plan for the pacemaker placement today. she has been resting off on on tonight. she has had a low grade temp 99.5. she has denies pain. kept pt turning side to side tonight. continues on 2 liters n/c.
--- NOTE | 2020-12-11 07:20 | EKG ---
[address] [place] [address] ELECTROCARDIOGRAM REPORT Name: SALEEM SAENZ Room #: 364-P ADM IN M.R.#: [id number] Admission: 11/27/20 Attend Phys: Rigo Lundy MD Discharge: Date of : 37 Report #: [id number] [facility] Test Date: 2020-12-09 Test Time: 10:24:12 Pat Name: SALEEM SAENZ Department: Room: 364 P Gender: F Park Landscape Architect: MADI : 1935 Requested By: Fabricio Gardner Order Number: [id number] MD: German Miranda Measurements Intervals [place] Rate: 109 P: [place]: QRS: -11 QRSD: 154 T: 15 QT: 370 QTc: 499 Interpretive Statements Atrial flutter with predominant 2:1 AV block Right bundle branch block Compared to ECG 12/05/2020 06:02:15 2:1 AV block now present Atrial fibrillation no longer present Electronically Signed On 12-11-2020 7:20:27 CDT by German Miranda [email or web address] <ELECTRONICALLY SIGNED> By: German Miranda MD, [facility] 12/11/20 0720 1024 1024 German Miranda MD, [facility] /EPI
--- NOTE | 2020-12-11 07:23 | EKG ---
[address] [place] [employer] [place] [address] ELECTROCARDIOGRAM REPORT Name: SALEEM SAENZ Room #: 364-P ADM IN M.R.#: [id number] Admission: 11/27/20 Attend Phys: Rigo Lundy MD Discharge: Date of : 37 Report #: [id number] [facility] Test Date: 2020-12-10 Test Time: 08:11:01 Pat Name: SALEEM SAENZ Department: Room: 364 P Gender: F Medication Aid: : 1935 Requested By: Fabricio Gardner Order Number: [id number] MD: German Miranda Measurements Intervals [place] Rate: 51 P: 70 MT: 117 QRS: 50 QRSD: 160 T: 47 QT: 470 QTc: 433 Interpretive Statements Sinus rhythm Atrial premature complexes Borderline short MT interval Right bundle branch block Compared to ECG 12/09/2020 10:24:12 Atrial premature complex(es) now present Atrial flutter no longer present 2:1 AV block no longer present Electronically Signed On 12-11-2020 7:23:19 CDT by German Miranda [email or web address] <ELECTRONICALLY SIGNED> By: German Miranda MD, FAC 12/11/20 0723 0 0 German Miranda MD, [facility] /EPI
[2020-12-11 07:59] VITALS: BP 185/59
[2020-12-11 10:24] LABS: ABSOLUTE NEUTROPHILS 4.4 thou/uL (1.4-8.2); BASOPHILS 0.6 % (0.0-2.0); EOSINOPHILS 2.1 % (0.0-3.0); HEMATOCRIT 23.1 % (37.0-47.0); HEMOGLOBIN 7.3 gm/dL (12.0-15.0); LYMPHOCYTES 13.1 % (24.0-44.0); MCH 28.9 pg (26.0-34.0); MCHC 31.6 g/dL (28.0-37.0); MCV 91.5 fL (80.0-100.0); MONOCYTES 9.1 % (1.0-8.0); PLATELET COUNT 156 thou/uL (150-400); POLYS 75.1 % (36.0-66.0); RBC 2.53 mil/uL (4.20-5.00); RDW 17.1 % (10.5-14.5); WBC 5.9 thou/uL (4.0-11.0)
[2020-12-11 10:31] LABS: CALCIUM 7.3 mg/dL (8.5-10.1); CREATININE 4.9 mg/dL (0.6-1.0); MAGNESIUM 1.7 mg/dL (1.8-2.4); POTASSIUM 3.9 mmol/L (3.5-5.1)
[2020-12-11 10:33] LABS: INR 1.14; PROTIME 12.4 Seconds (9.3-11.4)
[2020-12-11 11:24] VITALS: BP 145/100
--- NOTE | 2020-12-11 13:08 | NUR ---
MARKELL reviewed chart and spoke with nursing and attending physician. Pt is progressing towards goals for discharge. Pt to have pacemaker placed today. Pt will then transfer to CCU following procedure. MARKELL met with pt at bedside. Pt receiving dialysis during time of visit. MARKELL provided update regarding plans for pt to discharge to [facility] when medically stable. Pt is agreeable with discharge plan. Insurance auth was obtained over the weekend. Will need a new authorization. MARKELL faxed updated clinical/therapy info to [facility] and to [facility]. Pt's dialysis is in place at [facility]. MARKELL spoke with pt's dtr, Jamila, via phone to provide update. Jamila verbalized understanding. Jamila requests referral for Medicaid. MARKELL sent message to [facility] [employer] for follow up. Plan is for pt to discharge to Ajmila's home after rehab at [facility]. MARKELL is following to assist as needed with discharge planning.
[2020-12-11 17:08] VITALS: BP 150/68
[2020-12-11 19:30] VITALS: BP 127/61
--- NOTE | 2020-12-11 19:53 | NUR ---
RN ASSUMED PT'S CARE AT 0700AM, PT IS A&OX3, PT IS ON O2 2L/MIN/NC, PT'S VS ARE STABLE AT DAY SHIFT, PT IS TOLERATED DIALYSIS TIDAY, ( REMOVED 2000ML FLUID ), PT IS GOING TO NPO AFTER MN FOR PACEMAKER INSERTION TOMORROW, PT HAS SIGNED THE CONSENT .
[2020-12-11 23:39] VITALS: BP 142/78
[2020-12-12 02:56] VITALS: BP 131/49
--- NOTE | 2020-12-12 03:52 | NUR ---
Requested tylenol for leg pain with good relief. She has been repositioned. Chlorhexidine bath given. Kept NPO since PR for pacemaker placement today. O2 at 2L/NC with O2 sat in the mid to upper 90's. No active bleeding. Bed alarm on for safety , she calls appropriately. Z guard applied to buttocks. She slept well during the night.
[2020-12-12 05:22] LABS: HEMATOCRIT 24.3 % (37.0-47.0); HEMOGLOBIN 7.7 gm/dL (12.0-15.0); MCH 28.7 pg (26.0-34.0); MCHC 31.5 g/dL (28.0-37.0); MCV 90.9 fL (80.0-100.0); RBC 2.68 mil/uL (4.20-5.00); RDW 17.5 % (10.5-14.5); WBC 4.9 thou/uL (4.0-11.0)
[2020-12-12 05:35] LABS: CALCIUM 7.2 mg/dL (8.5-10.1); MAGNESIUM 1.7 mg/dL (1.8-2.4); POTASSIUM 3.9 mmol/L (3.5-5.1)
[2020-12-12 05:42] LABS: CREATININE 3.1 mg/dL (0.6-1.0)
[2020-12-12 10:15] VITALS: BP 145/56
--- NOTE | 2020-12-12 10:42 | NUR ---
WOUND CARE F/U; THE PATIENT IS IN ROOM 213. S/P PACEMAKER PLACEMENT. THE PATIENT IS ALERT. THE PATIENT HAD A SOLID STOOL. THE BUTTOCKS AND ISCHIUMS BILATERALLY WERE ASSESSED. ALL THE WOUNDS ARE STABLE AND CLINICALLY IMPROVED. PINK/RED WOUND BEDS WITH NO S/S OF INFECTION. RECOMMENDATIONS; -CONTINUE Q2H TURNING -CONTINUE ZGUARD/SACRAL FOAM DRESSINGS. RN WAS PRESENT
--- NOTE | 2020-12-12 11:31 | NUR ---
MARKELL reviewed chart and spoke with nursing and attending physician. Pt had pacemaker placed this morning and transferred to CCU following procedure. Discharge to [facility] is anticipated for tomorrow. SW faxed clinical updates to [facility] and [facility] for review. Will need insurance auth for skilled placement. Repeat COVID test ordered today per facility's request. Pt's dialysis is in place at [facility]. MARKELL is following to assist as needed with discharge planning.
[2020-12-12 17:52] VITALS: BP 133/48
--- NOTE | 2020-12-12 18:04 | NUR ---
PT. ARRIVED AT THE FLOOR CLOSE TO 1100; PT. AOX4; NO C/O PAIN; BACK FROM PACEMAKER PLACEMENT; NOTICED NO IMMOBILIZER; CV HOLDING NOTIFIED; ELAINE RN AT THE BED SIDE PLACED IMMOBILIZER; AM MEDICATIONS GIVEN; WOUND CARE NURSE AT THE BED SIDE; WOUND CARE PERFORMED; EDUCATED ABOUT MANTAINING HEAD OF BED ELEVATED; ST. UNDERSTANDING; TURNED FROM SIDE TO SIDE THROUGH THE DAY; APACED ON THE MONITOR; POOR APPETITE DURING LUNCH AND DINNER; ASSESSMENT CHARGED; FOLLOWING POC; WILL PASS ON REPORT;
[2020-12-12 18:37] VITALS: BP 146/43
[2020-12-12 20:15] VITALS: BP 148/51
[2020-12-12 23:54] VITALS: BP 153/64
[2020-12-13 05:16] VITALS: BP 159/53
--- NOTE | 2020-12-13 05:16 | NUR ---
SLEPT MOST OF SHIFT. ASSIST TO REPOSITION NEEDED. WORKING ON GOALS AND PLAN OF CARE FOR NOC. PROGRESSING TOWARDS DISCHARGE GOALS SLOWLY. CONTINUE TO ASSES CLOSELY. DENIES COMPLAINTS OF PAIN THIS SHIFT.
[2020-12-13 05:23] LABS: ABSOLUTE RETIC COUNT 0.081 10^6/uL; OBSERVED RETIC COUNT 3.12 % (0.6-2.6)
[2020-12-13 08:57] VITALS: BP 182/77
--- NOTE | 2020-12-13 10:45 | NUR ---
WOUND CARE F/U; THE WOUNDS LOOK CLINICALLY BETTER SINCE ADMISSION. HEALTHY RED WOUND BED. NO S/S OF INFECTION. WOUNDS MEASURE 2 X 2, 1.5 X .5 AND 1 X 1 TODAY. THE PATIENT IS LIKELY TO BE DISCHAGED TODAY. RECOMMENDATIONS; NO CHANGES ARE NESSESSARY. RN PRESENT.
[2020-12-13] MEDS ORDERED: IPRAT-ALBUT 0.5-3 ML INH (11:09)
[2020-12-13] MEDS ORDERED: HYDRALAZINE 5050 MG PO (11:09)
[2020-12-13] MEDS ORDERED: RENVELA800 MG PO (11:10)
[2020-12-13] MEDS ORDERED: METOPROLOL SUCC50 MG PO (11:10)
[2020-12-13] MEDS ORDERED: PULMICORT0.5 MG/21 INH (11:11)
[2020-12-13] MEDS ORDERED: FOLIC ACID1 MG PO (11:11)
[2020-12-13] MEDS ORDERED: PROTONIX40 M4 PO (11:12)
[2020-12-13 12:40] VITALS: BP 138/77
[2020-12-13 13:52] VITALS: BP 148/95
--- NOTE | 2020-12-13 14:53 | NUR ---
RECEIVED PT'S CARE AROUND 714; PT. ON BED; ALERT; DURING AM ASSESSMENT AOX4; NO C/O PAIN; AM MEDICATIONS GIVEN; PT. CONCERNED ABOUT NOT ABLE TO HAVE BREAKFAST DUE TO DIALYSIS; EDUCATED ABOUT ABLE TO HAVE BREAKFAST; ST. UNDERSTANDING; ABLE TO HAVE BREAKFAST; REQUESTED TO BE CHANGED; WOUND CARE PERFORMED BY WOUND CARE NURSE; ELEVATED BP; PHYSICIAN NOTIFIED; NO NEW ORDERS; DIALYSIS AT THE BED SIDE AROUND 1100; DURING THE AFTERNOON PT'S HR BETWEEN 110-130s; DARRICK LEE NOTIFIED; ORDERS ON PLACED; MEDICATION GIVEN; PER DRILL PRESS OPERATOR HELPER OK TO BE D/C; CALLED DAUGHTER NO ANSWER; LEFT VOICE MAIL; NO CALL RETURN; ASSESSMENT CHARGED; FOLLOWING POC; WILL WORK ON D/C PAPERS;
--- NOTE | 2020-12-13 15:26 | NUR ---
PT DISCHARGING TODAY ESTELLE/JAMES SKILLED FAXED DC ORDERS/SUMMARY TO FACILITY SPOKE WITH GELA IN ADM SHE RECEIVED ORDERS. THEY DO NOT HAVE A STRETCHER VAN AT FACILITY SO I ARRANGED TRANSPORT WITH [facility] FOR 1500 TODAY. NOTIFIED PT'S DTR (ADAMA) OF DC AND TIME OF TRANSPORT SHE WAS CONCERNED OF PT DISCHARGING DAY AFTER PACEMAKER INSERTED AND THAT FACILITY WOULD NOT HAVE HER ON A MONITOR I NOTIFIED ROSS (MARKELL) AND SHE HAD ONE OF CARDIAC MARKET ANALYST CALL DTR TO ANSWER ANY QUESTIONS SHE HAS. PT'S DTR NOTIFIED OF TIME OF TRANSPORT UNIT NOTIFIED AND CHART COPY PER US. RN TO CALL REPORT TO [phone].
--- NOTE | 2020-12-15 09:13 | P ---
[facility] [place] [address] PROCEDURE REPORT Name: SALEEM SAENZ Room #: 213-P [facility] IN ..#: [id number] Admission: 11/27/20 Attend Phys: Rigo Lundy MD Discharge: 12/13/20 Date of : 37 Report #: [id number] THIS REPORT FOR: cc: [place] - No family physician/PCP FAM - No family physician/PCP Matt Muñiz MD ~ DATE OF SERVICE: 12/12/2020 PACEMAKER IMPLANTATION PREOPERATIVE DIAGNOSIS: Sick sinus syndrome. POSTOPERATIVE DIAGNOSIS: Sick sinus syndrome. HISTORY: The patient is an 85-year-old who has evidence of sick sinus syndrome here for pacemaker implantation. ANESTHESIA: The patient underwent MAC anesthesia with no anesthesia related complications. DESCRIPTION OF PROCEDURE: The patient underwent informed consent. We discussed the details of the procedure including the risks, which include but not limited to bleeding, infection, vascular damage, cardiac perforation, and pneumothorax. She understood these risks and is willing to proceed. The patient was brought to EP laboratory in fasting and sedated state, prepped and draped in a sterile fashion, underwent venogram showing patency of left axillary vein and received IV antibiotics. Next, a lidocaine was injected below the level of left clavicle. Incision was made, pocket created over the prepectoral fascia and access obtained twice to left axillary vein and sheath positioned using the modified Seldinger technique. Leads were positioned into the right ventricle, right atrial appendage both with adequate pacing and sensing thresholds. Both were sutured to the prepectoral fascia. Device connected. Tug test performed. Pocket was irrigated with vancomycin. Pocket closed in 2 layers using 2-0 for the deep layer, 3-0 for the mid layer and surgical glue placed at outer skin layer. The patient awoke neurologically and hemodynamically intact. No complications and no significant bleeding. Implanted pacemaker and leads were [employer]. The device was a model # W3DR01, serial #[id number]. Atrial lead was a 5076, serial #[id number]. RV lead was a 5076, serial #[id number]. Atrial lead demonstrated P waves of 1.8 millivolts, pacing impedance of 568 ohms, pacing threshold 1.8 volts at 0.5 milliseconds. RV lead demonstrated R waves of 7.2 millivolts, pacing impedance of 583 ohms, pacing threshold 0.5 volts at 0.5 milliseconds. The device was programmed to the DDD 60-130 mode. [facility] [address] [place] [place] [address] PROCEDURE REPORT Name: SALEEM SAENZ Room #: 213-P [facility]#: [id number] Admission: 11/27/20 Attend Phys: Rigo Lundy MD Discharge: 12/13/20 Date of : 39 Report #: [id number] CONCLUSIONS: Successful dual-chamber pacemaker implantation. <ELECTRONICALLY SIGNED> By: Matt Muñiz MD 12/15/20912 0752 3 Matt Muñiz MD /maryana
== END 2020-12-13 15:52 | DRG 242 ==
LOC: ER 19:45 → 3W 22:08 → EROBS 22:08 → 3W 11-28 00:38 → 2N 12-12 10:46
PROVIDERS: Anesthesiology; Emergency Medicine; Hospitalist; Internal Medicine; Internal Medicine Cardiovascular Disease; Internal Medicine Hematology & Oncology; Internal Medicine Nephrology; Nurse Practitioner; Nurse Practitioner Family; Pediatrics; ADMIT Hospitalist; ATTEND Hospitalist
PROC: 30233N1 Transfusion of Nonautologous Red Blood Cells into Peripheral Vein, Percutaneous Approach (ICD-10-PCS; principal; 2020-11-27)
PROC: 0DB98ZX Excision of Duodenum, Via Natural or Artificial Opening Endoscopic, Diagnostic (ICD-10-PCS; 2020-12-01)
PROC: 02HV33Z Insertion of Infusion Device into Superior Vena Cava, Percutaneous Approach (ICD-10-PCS; 2020-12-05)
PROC: 5A09357 Assistance with Respiratory Ventilation, Less than 24 Consecutive Hours, Continuous Positive Airway Pressure (ICD-10-PCS; 2020-12-05)
PROC: B5181ZA Fluoroscopy of Superior Vena Cava using Low Osmolar Contrast, Guidance (ICD-10-PCS; 2020-12-05)
PROC: 0JH63XZ Insertion of Tunneled Vascular Access Device into Chest Subcutaneous Tissue and Fascia, Percutaneous Approach (ICD-10-PCS; 2020-12-05)
PROC: B548ZZA Ultrasonography of Superior Vena Cava, Guidance (ICD-10-PCS; 2020-12-05)
PROC: 5A09357 Assistance with Respiratory Ventilation, Less than 24 Consecutive Hours, Continuous Positive Airway Pressure (ICD-10-PCS; 2020-12-06)
PROC: 5A09357 Assistance with Respiratory Ventilation, Less than 24 Consecutive Hours, Continuous Positive Airway Pressure (ICD-10-PCS; 2020-12-07)
PROC: 5A09357 Assistance with Respiratory Ventilation, Less than 24 Consecutive Hours, Continuous Positive Airway Pressure (ICD-10-PCS; 2020-12-08)
PROC: 5A1D70Z Performance of Urinary Filtration, Intermittent, Less than 6 Hours Per Day (ICD-10-PCS; 2020-12-08)
PROC: 02HK3JZ Insertion of Pacemaker Lead into Right Ventricle, Percutaneous Approach (ICD-10-PCS; 2020-12-12)
PROC: 02H63JZ Insertion of Pacemaker Lead into Right Atrium, Percutaneous Approach (ICD-10-PCS; 2020-12-12)
PROC: 0JH606Z Insertion of Pacemaker, Dual Chamber into Chest Subcutaneous Tissue and Fascia, Open Approach (ICD-10-PCS; 2020-12-12)
PROC: 5A1D70Z Performance of Urinary Filtration, Intermittent, Less than 6 Hours Per Day (ICD-10-PCS; 2020-12-13)
DX: I49.5 Sick sinus syndrome (principal); N17.0 Acute kidney failure with tubular necrosis; I50.21 Acute systolic (congestive) heart failure; J96.01 Acute respiratory failure with hypoxia; N18.6 End stage renal disease; K92.2 Gastrointestinal hemorrhage, unspecified; D62 Acute posthemorrhagic anemia; N39.0 Urinary tract infection, site not specified; I13.2 Hypertensive heart and chronic kidney disease with heart failure and with stage 5 chronic kidney disease, or end stage renal disease; E87.2 Acidosis; L89.329 Pressure ulcer of left buttock, unspecified stage; Z20.822 Contact with and (suspected) exposure to COVID-19; Z96.641 Presence of right artificial hip joint; F17.210 Nicotine dependence, cigarettes, uncomplicated; E86.0 Dehydration; K80.20 Calculus of gallbladder without cholecystitis without obstruction; R63.4 Abnormal weight loss; R53.81 Other malaise; E83.51 Hypocalcemia; E83.39 Other disorders of phosphorus metabolism; B96.1 Klebsiella pneumoniae [K. pneumoniae] as the cause of diseases classified elsewhere; E83.42 Hypomagnesemia; D63.1 Anemia in chronic kidney disease; I27.20 Pulmonary hypertension, unspecified; I48.0 Paroxysmal atrial fibrillation; S40.011A Contusion of right shoulder, initial encounter; X58.XXXA Exposure to other specified factors, initial encounter; Y93.89 Activity, other specified; Y92.89 Other specified places as the place of occurrence of the external cause; Y99.8 Other external cause status; Z90.710 Acquired absence of both cervix and uterus; Z91.040 Latex allergy status; Z88.0 Allergy status to penicillin; Z80.0 Family history of malignant neoplasm of digestive organs; Z91.19 Patient's noncompliance with other medical treatment and regimen; Z68.30 Body mass index [BMI] 30.0-30.9, adult
CPT/HCPCS: 10081; 10879; 32100; 62110; 62900; 70005